=== PATIENT | female | born 1995 | race Caucasian/White ===

== ENCOUNTER 2018-01-24 08:00 | Outpatient (CLI) | payer BC, OTHER | END 2018-01-24 08:01 | disposition home or self-care (01) | LOC: LAB.R 08:00 | PROVIDERS: ATTEND Obstetrics & Gynecology | DX: Z11.3 Encounter for screening for infections with a predominantly sexual mode of transmission (principal); Z36.9 Encounter for antenatal screening, unspecified | CPT/HCPCS: 87491; 87591 ==

== ENCOUNTER 2018-02-11 13:43 | Outpatient (CLI) | payer OTHER ==
[2018-02-11 13:57] LABS: BILIRUBIN,URINE NEGATIVE (NEGATIVE); GLUCOSE, URINE (UA) NEGATIVE (NEGATIVE); KETONES,URINE (UA) 15 mg/dL (NEGATIVE); LEUKOCYTE ESTERASE, URINE NEGATIVE (NEGATIVE); NITRITE,URINE NEGATIVE (NEGATIVE); OCCULT BLOOD,URINE NEGATIVE (NEGATIVE); PROTEIN,URINE NEGATIVE (NEGATIVE); UROBILINOGEN,URINE 0.2 (NORMAL) E.U./dL (NORMAL)
[2018-02-11 14:04] LABS: BACTERIA,URINE None Seen /HPF (None Seen); CLARITY,URINE CLEAR (CLEAR); RBC,URINE None Seen /HPF (0-5); SQUAMOUS EPITHELIAL CELL,UR RARE Squamous (<= Few)
[2018-02-11 14:08] LABS: BASOPHILS % (AUTO) 0.1 %; EOSINOPHILS # (AUTO) 0.1 10^3/uL (0.0-0.7); HGB - HEMOGLOBIN 14.3 g/dL (12.0-16.0); LYMPHOCYTES # (AUTO) 1.7 10^3/uL (1.5-3.5); LYMPHOCYTES % (AUTO) 14.4 %; MEAN CORPUSCULAR HEMOGLOBIN 31.6 pg (27.0-31.0); MEAN CORPUSCULAR HGB CONC 34.9 g/dL (32.0-36.0); MEAN CORPUSCULAR VOLUME 90.5 fL (81.0-99.0); MEAN PLATELET VOLUME 8.6 fL (7.9-10.8); MONOCYTES # (AUTO) 0.4 10^3/uL (0.0-1.0); MONOCYTES % (AUTO) 3.6 %; NEUTROPHILS # (AUTO) 9.4 10^3/uL (1.5-6.6); NEUTROPHILS % (AUTO) 80.9 %; PLT - PLATELET COUNT 177 10^3/uL (130-450); RED BLOOD COUNT 4.53 10^6/uL (4.20-5.40); RED CELL DISTRIBUTION WIDTH 12.7 % (12.0-15.0); WHITE BLOOD COUNT 11.7 x10^3/uL (4.8-10.8)
[2018-02-12 08:51] LABS: HEPATITIS B SURFACE ANTIGEN NON-REACTIVE (NON-REACTIVE); HEPATITIS C ANTIBODY NON-REACTIVE (NON-REACTIVE)
[2018-02-12 14:28] LABS: HIV AG/AB 4TH GEN NON-REACTIVE (NON-REACTIVE)
== END 2018-02-11 13:44 | disposition home or self-care (01) ==
LOC: LAB 13:43
PROVIDERS: ATTEND Obstetrics & Gynecology
DX: Z36.9 Encounter for antenatal screening, unspecified (principal); Z11.3 Encounter for screening for infections with a predominantly sexual mode of transmission
CPT/HCPCS: 36415; 81001; 81599; 85025; 86592; 86762; 86803; 86850; 86900; 86901; 87340; 87389

== ENCOUNTER 2018-03-07 11:40 | Outpatient (CLI) | payer OTHER | END 2018-03-07 11:41 | disposition home or self-care (01) | LOC: LAB 11:40 | PROVIDERS: ATTEND Obstetrics & Gynecology | DX: Z36.9 Encounter for antenatal screening, unspecified (principal) | CPT/HCPCS: 36415; 81599 ==

== ENCOUNTER 2018-04-05 05:36 | Emergency (ER) | payer OTHER ==
[2018-04-05 05:46] VITALS: BP 125/68
--- NOTE | 2018-04-05 06:03 | ED Physician Documentation ---
PD HPI FEMALE - Stated complaint Stated Complaint: 19W ,BLEEDING - Chief complaint Chief Complaint: Abd Pain - History obtained from History obtained from: Patient - History of Present Illness Timing - onset: Today Associated symptoms: Vaginal bleeding Contributing factors: OB-NURSE OBGYN History: G (1), P (0) Similar symptoms before: Has not had sx before Recently seen: Not recently seen - Additional information Additional information: Patient is a 22 year old 19 weeks and 6 days by ultrasound who is presenting to the emergency department for vaginal spotting. Patient reports that she had intercourse last night and this morning she noticed some spotting. Patient denies any significant bleeding. Patient reports that her prior work up has been normal and that she has a follow up ultrasound in a few days. Review of Systems Ten Systems: 10 systems reviewed and negative : reports: Vaginal bleeding PD PAST MEDICAL HISTORY - Past Medical History Past Medical History: No Cardiovascular: None Respiratory: None Endocrine/Autoimmune: None GI: None NURSE OBGYN: None : None HEENT: None Psych: None Musculoskeletal: None Derm: None - Past Surgical History Past Surgical History: Yes Ortho: Other - Present Medications Home Medications: Ambulatory Orders Medication Instructions Recorded Confirmed Cyclobenzaprine [Flexeril] 10 mg PO TID PRN #20 tablet 05/28/15 Nitrofurantoin Monohyd/M-Cryst 100 mg PO BID 5 Days capsule 07/24/15 [Macrobid 100 mg Capsule] Phenazopyridine HCl [Pyridium] 200 mg PO TID PRN #6 tablet 07/24/15 - Allergies Allergies/Adverse Reactions: Allergies Allergy/AdvReac Type Severity Reaction Status Date / Time No Known Drug Allergies Allergy Verified 08/06/16 20:37 - Social History Does the pt smoke?: No Smoking Status: Never smoker Does the pt drink ETOH?: Yes Does the pt have substance abuse?: No - Immunizations Immunizations are current?: Yes - POLST Patient has POLST: No PD ED PE NORMAL - Vitals Vital signs reviewed: Yes - General General: Alert and oriented X 3, Well developed/nourished - HEENT HEENT: Atraumatic - Neck Neck: Supple, no meningeal sign - Cardiac Cardiac: RRR - Abdomen Abdomen: Soft - Female Female : Deferred - Derm Derm: Normal color, Warm and dry - Extremities Extremities: No deformity - Neuro Neuro: Alert and oriented X 3 Eye Opening: Spontaneous Results - Vitals Vitals: Vital Signs - 24 hr 04/05/18 05:40 Temperature 35.9 C L Heart Rate 77 Respiratory 16 Rate Blood Pressure 125/68 O2 Saturation 100 Oxygen O2 Source Room air Procedures - Bedside sono Bedside sono by EMP: pelvic ultrasound-viable iup with fhr of 154 PD MEDICAL DECISION MAKING - ED course Complexity details: reviewed old records, reviewed results, re-evaluated patient , considered differential, d/w patient, d/w family ED course: Patient was seen and examined at bedside. Patient was anxious but otherwise well appearing. Bedside. ultrasound was performed and showed a viable iup with a heart rate of 154. Patient's blood type was o positive. Patient was comforted by the findings. Patient required no further inpatient work up at this time and patient was stable for discharge with outpatient follow up. - Sepsis Event Vital Signs: Vital Signs - 24 hr 04/05/18 05:40 Temperature 35.9 C L Heart Rate 77 Respiratory 16 Rate Blood Pressure 125/68 O2 Saturation 100 Oxygen O2 Source Room air Departure - Departure Disposition: 01 Home, Self Care Clinical Impression: Threatened in second trimester Condition: Good Instructions: ED Miscarriage Poss Follow-Up: Leah Reyes ARNP [Primary Care Provider] - Comments: Your child was well appearing. It could just be secondary to the recent intercourse. you should refrain from any strenuous activity. You should go to your follow up appointment this week. You may return to the emergency department at any time for new, worsening or uncontrollable symptoms. Forms: Activity restrictions
== END 2018-04-05 06:13 | disposition home or self-care (01) ==
LOC: ED 05:36
DX: O20.0 Threatened abortion (principal); Z3A.18 18 weeks gestation of pregnancy
CPT/HCPCS: 99283

== ENCOUNTER 2018-04-07 12:51 | Outpatient (CLI) | payer OTHER | END 2018-04-07 12:52 | disposition home or self-care (01) | LOC: LAB 12:51 | PROVIDERS: ATTEND Obstetrics & Gynecology | DX: Z36.9 Encounter for antenatal screening, unspecified (principal) | CPT/HCPCS: 36415; 82950 ==

== ENCOUNTER 2018-04-08 07:49 | Outpatient (CLI) | payer OTHER ==
--- NOTE | 2018-04-08 10:42 | Ultrasound Report ---
Procedure Date: 04/08/2018 Accession Number: [id number] / [id number] Procedure: US - OB Detailed Eval CPT Code: FULL RESULT: EXAM: COMPLETE OBSTETRICAL ULTRASOUND EXAM DATE: 04/08/2018 09:22 AM. CLINICAL HISTORY: anatomic survey. COMPARISON: None. TECHNIQUE: Real-time sonographic evaluation of the fetus performed by the data analytics developer. Multiple security representative static images were saved for review. DATING: Established EGA: None. EGA 19 weeks 3 days with TAWANDA 08/30/2018 based on possible LMP of 11/23/2017. EGA 21 weeks 1 day with TAWANDA 08/18/2018 based on the current ultrasound. GENERAL EVALUATION Walker . Cardiac activity: 152 bpm. movement: Present. Presentation: Variable. Placenta: Anterior position. No evidence for previa. Umbilical cord: 3 vessel cord. Central placental cord origin. Amniotic fluid: Subjectively normal. MVP 4.4 cm. BIOMETRY Bi-Parietal Diameter (BPD): 4.9 cm, 20 weeks 5 days Head Circumference (HC): 18.3 cm, 20 weeks 5 days Abdominal Circumference (AC): 16.5 cm, 21 weeks 4 days Femur Length (FL): 3.6 cm, 21 weeks 3 days Estimated Weight: 416 gm ANATOMY The intracranial structures, profile, face/nose/lips, spine, 4 chamber heart and outflow tracts, stomach, abdominal wall and cord insertion, diaphragm, kidneys, bladder, and extremities were seen and demonstrate no abnormality. MATERNAL STRUCTURES Uterus: Unremarkable. Cervix: Long and closed. Transabdominal length 4.5 cm. Right ovary/adnexa: Unremarkable. Left ovary/adnexa: Unremarkable. Free fluid: None. IMPRESSION: 1. Walker intrauterine with gestational age 21 weeks 1 day based on composite ultrasound measurements today.. 2. TAWANDA 08/18/2018 3. Normal anatomic survey. No anatomic abnormalities are detected at this time. RADIA
== END 2018-04-08 07:50 | disposition home or self-care (01) ==
LOC: DI 07:49
PROVIDERS: ATTEND Obstetrics & Gynecology
DX: Z36.3 Encounter for antenatal screening for malformations (principal)
CPT/HCPCS: 76811

== ENCOUNTER 2018-04-29 08:00 | Outpatient (CLI) | payer OTHER | END 2018-04-29 08:01 | disposition home or self-care (01) | LOC: LAB 08:00 | PROVIDERS: ATTEND Obstetrics & Gynecology | DX: R73.02 Impaired glucose tolerance (oral) (principal) | CPT/HCPCS: 36415; 82951; 82952 ==

== ENCOUNTER 2018-07-21 08:00 | Outpatient (CLI) | payer OTHER | END 2018-07-21 23:59 | LOC: LAB.R 08:00 | PROVIDERS: ATTEND Obstetrics & Gynecology | DX: Z36.85 Encounter for antenatal screening for Streptococcus B (principal) | CPT/HCPCS: 87081 ==

== ENCOUNTER 2018-08-01 10:13 | Outpatient (CLI) | payer OTHER ==
[2018-08-01 10:43] LABS: BILIRUBIN,URINE NEGATIVE (NEGATIVE); GLUCOSE, URINE (UA) NEGATIVE (NEGATIVE); KETONES,URINE (UA) NEGATIVE (NEGATIVE); LEUKOCYTE ESTERASE, URINE NEGATIVE (NEGATIVE); NITRITE,URINE NEGATIVE (NEGATIVE); OCCULT BLOOD,URINE NEGATIVE (NEGATIVE); PROTEIN,URINE NEGATIVE (NEGATIVE); UROBILINOGEN,URINE 0.2 (NORMAL) E.U./dL (NORMAL)
[2018-08-01 10:46] LABS: CLARITY,URINE CLEAR (CLEAR)
[2018-08-01 10:51] LABS: CREATININE 0.5 mg/dL (0.4-1.0); CREATININE,URINE 76.7 mg/dL; PROTEIN/CREATININE RATIO,URINE 0.1 (<=0.2); URIC ACID 5.2 mg/dL (2.6-7.2)
== END 2018-08-01 10:14 | disposition home or self-care (01) ==
LOC: LAB 10:13
PROVIDERS: ATTEND Nurse Practitioner Obstetrics & Gynecology
DX: R03.0 Elevated blood-pressure reading, without diagnosis of hypertension (principal)
CPT/HCPCS: 36415; 81001; 81003; 82565; 82570; 83615; 84156; 84450; 84550; 87086

== ENCOUNTER 2018-08-03 21:36 | Outpatient (CLI) | payer OTHER ==
[2018-08-03 23:31] VITALS: BP 120/83
== END 2018-08-03 22:40 | disposition home or self-care (01) ==
LOC: FBP 21:36 → WFO 21:36
PROVIDERS: ATTEND Obstetrics & Gynecology
DX: O99.89 Other specified diseases and conditions complicating pregnancy, childbirth and the puerperium (principal); R03.0 Elevated blood-pressure reading, without diagnosis of hypertension; Z3A.37 37 weeks gestation of pregnancy
CPT/HCPCS: 99213

== ENCOUNTER 2018-08-04 14:17 | Outpatient (CLI) | payer OTHER ==
[2018-08-04 14:59] VITALS: BP 134/80
[2018-08-04 16:10] LABS: CREATININE,URINE 72.1 mg/dL; PROTEIN/CREATININE RATIO,URINE 0.1 (<=0.2)
== END 2018-08-04 15:22 | disposition home or self-care (01) ==
LOC: WFO 14:17 → FBP 14:20 → WFO 15:22
PROVIDERS: ATTEND Obstetrics & Gynecology
DX: O13.3 Gestational [pregnancy-induced] hypertension without significant proteinuria, third trimester (principal); Z3A.38 38 weeks gestation of pregnancy
CPT/HCPCS: 59025; 82570; 84156

== ENCOUNTER 2018-08-06 14:56 | Outpatient (CLI) | payer OTHER ==
[2018-08-06 15:58] VITALS: BP 129/77
== END 2018-08-06 15:45 | disposition home or self-care (01) ==
LOC: WFO 14:56 → FBP 14:59 → WFO 15:45
PROVIDERS: ATTEND Obstetrics & Gynecology
DX: O13.3 Gestational [pregnancy-induced] hypertension without significant proteinuria, third trimester (principal); Z3A.38 38 weeks gestation of pregnancy
CPT/HCPCS: 59025

== ENCOUNTER 2018-08-08 15:23 | Inpatient (IN) | payer OTHER ==
[2018-08-08] MEDS ORDERED: SODIUM CHLORIDE FLUSH 0.9% 10 ML SYRINGE IVP SCH (17:00)
[2018-08-08] MEDS ORDERED: ONDANSETRON 4 MG/2 ML VIAL IVP PRN (18:00)
[2018-08-08] MEDS ORDERED: SODIUM CHLORIDE FLUSH 0.9% 10 ML SYRINGE IVP PRN (18:00)
[2018-08-08] MEDS ORDERED: DINOPROSTONE 10 MG SUPP VG ONE (18:30)
[2018-08-08 19:31] LABS: BASOPHILS % (AUTO) 0.2 %; EOSINOPHILS # (AUTO) 0.1 10^3/uL (0.0-0.7); EOSINOPHILS % (AUTO) 1.2 %; HGB - HEMOGLOBIN 13.4 g/dL (12.0-16.0); LYMPHOCYTES # (AUTO) 1.5 10^3/uL (1.5-3.5); LYMPHOCYTES % (AUTO) 14.8 %; MEAN CORPUSCULAR HEMOGLOBIN 31.1 pg (27.0-31.0); MEAN CORPUSCULAR HGB CONC 34.4 g/dL (32.0-36.0); MEAN CORPUSCULAR VOLUME 90.7 fL (81.0-99.0); MEAN PLATELET VOLUME 9.9 fL (7.9-10.8); MONOCYTES # (AUTO) 0.6 10^3/uL (0.0-1.0); MONOCYTES % (AUTO) 5.6 %; NEUTROPHILS # (AUTO) 7.8 10^3/uL (1.5-6.6); NEUTROPHILS % (AUTO) 78.2 %; PLT - PLATELET COUNT 151 10^3/uL (130-450); RED BLOOD COUNT 4.31 10^6/uL (4.20-5.40); RED CELL DISTRIBUTION WIDTH 13.1 % (12.0-15.0)
--- NOTE | 2018-08-08 20:01 | PROVIDER PROGRESS NOTE ---
Subjective - Prog Note Date Prog Note Date: 08/04/18 Prog Note Time: 16:00 - Subjective Subjective: Libby Smith is a 23-year-old primigravida at 38 weeks 1 day who is here for routine NST due to gestational hypertension. Blood pressure measur ements 138/93 and 134's/80. She has no headaches visual changes or epigastric tenderness with only mild edema. NST is reactive with a baseline of 140 moderate variability to increase variability with multiple accelerations meeting criteria and only rare contraction. Patient was given warning signs and follow- up instructions and sent home. She will be evaluated in the clinic next week. Objective - Lab Results Fish Bones: 08/08/18 19:05 Other Labs: Lab Results x24hrs 08/08/18 Range/Units 19:05 WBC 10.0 (4.8-10.8) x10^3/uL RBC 4.31 (4.20-5.40) 10^6/uL Hgb 13.4 (12.0-16.0) g/dL Hct 39.1 (37.0-47.0) % MCV 90.7 (81.0-99.0) fL MCH 31.1 H (27.0-31.0) pg MCHC 34.4 (32.0-36.0) g/dL RDW 13.1 (12.0-15.0) % Plt Count 151 (130-450) 10^3/uL MPV 9.9 (7.9-10.8) fL Neut # (Auto) 7.8 H (1.5-6.6) 10^3/uL Lymph # (Auto) 1.5 (1.5-3.5) 10^3/uL [place] # (Auto) 0.6 (0.0-1.0) 10^3/uL Eos # (Auto) 0.1 (0.0-0.7) 10^3/uL Baso # (Auto) 0.0 (0.0-0.1) 10^3/uL Absolute Nucleated RBC 0.01 x10^3/uL Nucleated RBC % 0.1 /100WBC
[2018-08-08 21:04] LABS: BILIRUBIN,TOTAL 0.5 mg/dL (0.2-1.0); CALCIUM 8.9 mg/dL (8.5-10.3); CREATININE 0.6 mg/dL (0.4-1.0); TOTAL PROTEIN 6.1 g/dL (6.7-8.2)
[2018-08-09] MEDS: LABETALOL 100 MG TABLET PO SCH ×2 (00:53→10:49)
[2018-08-09 01:10] LABS: BILIRUBIN,URINE NEGATIVE (NEGATIVE); GLUCOSE, URINE (UA) NEGATIVE (NEGATIVE); KETONES,URINE (UA) NEGATIVE (NEGATIVE); LEUKOCYTE ESTERASE, URINE NEGATIVE (NEGATIVE); NITRITE,URINE NEGATIVE (NEGATIVE); OCCULT BLOOD,URINE NEGATIVE (NEGATIVE); PROTEIN,URINE NEGATIVE (NEGATIVE); UROBILINOGEN,URINE 0.2 (NORMAL) E.U./dL (NORMAL)
[2018-08-09 01:19] LABS: CREATININE,URINE 132.2 mg/dL; PROTEIN/CREATININE RATIO,URINE 0.1 (<=0.2)
[2018-08-09 01:45] LABS: BACTERIA,URINE None Seen /HPF (None Seen); CLARITY,URINE CLEAR (CLEAR); RBC,URINE None Seen /HPF (0-5); SQUAMOUS EPITHELIAL CELL,UR NONE SEEN (<= Few)
--- NOTE | 2018-08-09 02:31 | HISTORY & PHYSICAL EXAMINATION ---
DATE OF SERVICE: 08/08/2018 Physician: Davy Mcclure MD DIAGNOSES 1. Gestational hypertension, necessitating labetalol. 2. A 38-week gestation. 3. Large for gestational age fetus. 4. Medically indicated induction with ripening, then Pitocin. HISTORY OF PRESENT ILLNESS: Patient is a 23-year-old primigravida at 38 w gestation who [facility]. On the last 2 visits, she has been noted to have increased blood pressure; August 05, 134/98, and August 04, 142/93. She was begun on labetalol. She had no pre- cardiovascular disease. She currently has no headaches, visual changes, or right upper quadrant pain but does have mild finger and ankle edema. Her last NST on August 04 was reactive. BASELINE LABORATORY STUDIES: Blood type O positive, antibody screen negative. Hepatitis B surface antigen negative. Hepatitis C negative. HIV negative. RPR negative. Rubella immune. One-hour Glucola 146. Three-hour glucose tolerance test normal (94, 156, 94, 51). Normal anatomy scan. PAST MEDICAL HISTORY 1. No chronic disease history. 2. Fracture, left elbow. ALLERGIES: NO KNOWN DRUG ALLERGIES. MEDICATIONS 1. vitamins and iron. 2. Labetalol 100 mg b.i.d. SOCIAL HISTORY: , employed. No drug, tobacco, or alcohol use. REVIEW OF SYSTEMS CONSTITUTIONAL: Negative. HEENT: Negative. LUNGS: Negative. CARDIAC: Negative. GASTROINTESTINAL: Negative. GENITOURINARY: Negative. GC/chlamydia negative. No STI history. MUSCULOSKELETAL: Elbow surgical repair as noted before. Normal range of motion. HEMATOLOGIC/LYMPHATIC: No abnormal lymph nodes. No coagulation defect. NEUROLOGIC: Negative. SKIN: Negative. PSYCHIATRIC: Negative. PHYSICAL EXAMINATION GENERAL: Patient alert, oriented, in no distress. HEENT: Supple neck. No thyromegaly. Moist mucous membranes. LUNGS: Clear to auscultation. CARDIAC: Regular. Grade 2/6 systolic ejection murmur of . No diastolic component, rub, or gallop. ABDOMEN: No organomegaly. No right upper quadrant tenderness. GENITOURINARY: Uterus large for gestational age, estimated 8.5- to 9-pound fetus. Bony pelvis should be adequate. Obstetrical conjugate 12.5+, bituberous diameter 10.5+, angles slightly narrowed. External monitor reactive, rare contractions, baseline 140s. Cervical exam: 1.5 cm, 50% effaced, midposition. Bag of santa intact. Medium consistency. Modified Morse score is 5. Therefore, cervical ripening is advisable. EXTREMITIES: Normal range of motion. Mild pedal edema. NEUROLOGIC: Grossly intact. PSYCHOLOGIC: Alert, oriented, appropriate. ASSESSMENT: Patient has gestational hypertension as proved by elevated blood pressure on 2 occasions. Currently she is on labetalol, and blood pressure control. No signs or symptoms of preeclampsia. However, await admission/-induced hypertension labs. Given current ACOG ([employer]) recommendations, gestational hypertension over 37 weeks, recommendation is for delivery/induction. Patient seems to be an appropriate candidate. PLAN 1. Cervidil ripening followed by Pitocin induction. 2. Had a detailed discussion with patient about induction, including the indication, risks, and potential benefits. Also discussed the alternative of waiting and the possibility of worsening preeclampsia and poor outcome. After discussion, patient signed informed consent paperwork for induction. Orders written. TD: 08/08/2018 20:42 JUSTIN
[2018-08-09] MEDS ORDERED: SODIUM CHLORIDE FLUSH 0.9% 10 ML SYRINGE ONE (09:05)
[2018-08-09] MEDS: LACTATED RINGERS 1,000 ML IV SCH ×3 (09:06→20:22)
[2018-08-09] MEDS: OXYTOCIN/SODIUM CHLORIDE 500 ML IV SCH ×3 (09:09→23:45)
--- NOTE | 2018-08-09 09:49 | PROVIDER PROGRESS NOTE ---
Labor Progress Note - Uterine Monitoring Uterine Monitoring Mode: positive: External toco Contraction Frequency (min/apart): Irregular Contraction Intensity: positive: Irritability Uterine Resting Tone: positive: Soft - Monitoring Monitor Mode: positive: External ultrasound Heart Rate Baseline: 140 Heart Rate Variability: positive: Moderate (6-25 bmp) Accelerations: positive: Present, 15x15 Decelerations: positive: None Strip Review: positive: Category I - Vaginal Exam Dilation (in cm): 2-3 cm Effacement (%): 70% Station: 0 Cervical Position: Posterior - Labor Progress Note Labor Progress Note/Additional Text: Begin Pitocin
--- NOTE | 2018-08-09 15:19 | PROVIDER PROGRESS NOTE ---
Labor Progress Note - Uterine Monitoring Uterine Monitoring Mode: positive: External toco Contraction Frequency (min/apart): q2 - 3 min Contraction Intensity: positive: Mild to moderate Uterine Resting Tone: positive: Soft - Monitoring Monitor Mode: positive: External ultrasound Heart Rate Baseline: 145 Heart Rate Variability: positive: Moderate (6-25 bmp) Accelerations: positive: Present, 15x15 Decelerations: positive: None Strip Review: positive: Category I - Vaginal Exam Dilation (in cm): 2.5 Effacement (%): 70% Station: 0 Cervical Position: Midposition - Labor Progress Note Labor Progress Note/Additional Text: Patient is moving through the latent phase of labor with the aid of augmentation. heart tracing is non-concerning. Patient requests epidural in place prior to rupturing membranes. Patient candidate for rupture of membranes.
[2018-08-09] MEDS ORDERED: fent/BUPIV 2 MCG/0.125% 250 ML EP ONE (16:00)
[2018-08-09] MEDS ORDERED: ONDANSETRON 4 MG/2 ML VIAL IVP PRN (16:44)
[2018-08-09] MEDS ORDERED: METOCLOPRAMIDE 10 MG/2 ML VIAL IVP PRN (16:44)
[2018-08-09] MEDS ORDERED: NALBUPHINE 10 MG/ML AMP IVP PRN (16:44)
[2018-08-09] MEDS ORDERED: ePHEDrine 50 MG/ML VIAL IVP PRN (16:44)
[2018-08-09] MEDS ORDERED: LACTATED RINGERS 500 ML IV ONE (16:44)
[2018-08-09] MEDS ORDERED: NALOXONE 0.4 MG/ML VIAL IVP PRN (16:44)
[2018-08-09] MEDS ORDERED: diphenhydrAMINE INJ 50 MG/ML VIAL IVP PRN (16:44)
--- NOTE | 2018-08-09 16:52 | ANESTHESIA ---
Pre-Anesthesia VS, & Labs - Diagnosis Active labor, induced hypertension - Procedure Continuous labor epidural Vital Signs: Temp Pulse Resp BP Pulse Ox 36.7 C 61 18 140/80 H 100 08/09/18 11:37 08/09/18 11:37 08/09/18 11:37 08/09/18 11:37 08/09/18 11:37 Height 6 ft Weight (kg) 104.326 kg Body Mass Index 24.4 - NPO Other (Last solid food one hour ago) - Is Patient ?: Yes - Lab Results Current Lab Results: Laboratory Tests 08/08/18 20:33: Sodium 135, Potassium 3.3 L, Chloride 104, Carbon Dioxide 22, Anion Gap 9.0, BUN 10, Creatinine 0.6, Estimated GFR (MDRD) 125, Glucose 110 H, Calcium 8.9, Total Bilirubin 0.5, AST 27, ALT 31, Alkaline Phosphatase 148 H, Total Protein 6.1 L, Albumin 3.0 L, Globulin 3.1, Albumin/Globulin Ratio 1.0 08/08/18 20:33: Lactate Dehydrogenase 113 08/08/18 19:05: Blood Type O POSITIVE, Antibody Screen NEGATIVE 08/08/18 19:05: WBC 10.0, RBC 4.31, Hgb 13.4, Hct 39.1, MCV 90.7, MCH 31.1 H, MCHC 34.4, RDW 13.1, Plt Count 151, MPV 9.9, Neut # (Auto) 7.8 H, Lymph # (Auto) 1.5, [place] # (Auto) 0.6, Eos # (Auto) 0.1, Baso # (Auto) 0.0, Absolute Nucleated RBC 0.01, Nucleated RBC % 0.1 Fish Bones: 08/08/18 19:05 08/08/18 20:33 Home Medications and Allergies Active Medications Diphenhydramine HCl (Benadryl Inj) 12.5 - 25 mg IVP Q6HR PRN PRN Reason: ITCHING Ephedrine Sulfate () 5 mg IVP Q5M PRN PRN Reason: For SBP<100;give until SBP>100 Lactated Ringer's (Lr) 1,000 mls @ 100 mls/hr IV .Q10H KRIS Last Admin: 08/09/18 15:31 Dose: 999 mls/hr Oxytocin/Sodium Chloride (Pitocin/Sodium Chloride) 500 mls @ 1 mls/hr IV TITR KRIS; Protocol Last Admin: 08/09/18 09:09 Dose: 1 milliunit/min, 1 mls/hr Lactated Ringer's (Lr) 500 mls @ 999 mls/hr IV ONCE ONE Stop: 08/09/18 17:14 Labetalol HCl (Trandate) 100 mg PO BID REPLACED BY [facility] Last Admin: 08/09/18 10:49 Dose: 100 mg Metoclopramide HCl (Reglan Inj) 10 mg IVP Q6HR PRN PRN Reason: Nausea / Vomiting Nalbuphine HCl (Nubain) 2.5 - 5 mg IVP Q4H PRN PRN Reason: ITCHING Naloxone HCl (Narcan) 0.1 mg IVP Q2M PRN PRN Reason: RR<8 Ondansetron HCl (Zofran Inj) 4 mg IVP Q4HR PRN PRN Reason: Nausea / Vomiting Ondansetron HCl (Zofran Inj) 4 mg IVP Q6HR PRN PRN Reason: Nausea / Vomiting Sodium Chloride (Normal Saline Flush 0.9%) 10 ml IVP 0100,0900,1700 KRIS Sodium Chloride (Normal Saline Flush 0.9%) 10 ml IVP PRN PRN PRN Reason: NEEDED PER PROVIDER ORDERS Last Admin: 08/09/18 09:10 Dose: 10 ml Allergies/Adverse Reactions: Allergies Allergy/AdvReac Type Severity Reaction Status Date / Time No Known Drug Allergies Allergy Verified 08/06/16 20:37 Anes History & Medical History - Anesthetic History Anesthesia Complications: reports: No previous complications Family history of Anesthesia Complications: Denies Family history of Malignant Hyperthermia: Denies - Medical History Cardiovascular: reports: None, Hypertension (With , on 100 mg labetalol bid) Pulmonary: reports: None Gastrointestinal: reports: None Urinary: reports: None Musculoskeletal: reports: None, Scoliosis Endocrine/Autoimmune: reports: None Blood Disorders: reports: None Skin: reports: None Smoking Status: Never smoker - Surgical History Orthopedic: Other Exam General: Alert, Oriented x3, Cooperative Dental: WNL Mouth Opening: Greater than 4 Fingerbreadths Neck Mobility: Normal Mallampati classification: II Thyromental Distance: greater than 6 cm Neurological: Normal speech Mental/Cognitive Status: Alert/Oriented X3 Cognitive Status: Within normal limits Plan Anesthesia Type: Epidural Consent for Procedure(s) Verified and Reviewed: Yes Code Status: Attempt Resuscitation ASA classification: 2-Mild systemic disease Is this case an emergency?: Yes
--- NOTE | 2018-08-09 18:07 | PROVIDER PROGRESS NOTE ---
Labor Progress Note - Uterine Monitoring Uterine Monitoring Mode: positive: External toco Contraction Frequency (min/apart): Every 2.5-3 minutes Contraction Intensity: positive: Moderate Uterine Resting Tone: positive: Soft - Monitoring Monitor Mode: positive: External ultrasound Heart Rate Baseline: [id number] Heart Rate Variability: positive: Moderate (6-25 bmp) Accelerations: positive: Present, 15x15 Decelerations: positive: Variable (Mild at most) Strip Review: positive: Category I - Vaginal Exam Dilation (in cm): 3 Effacement (%): 70% Station: 0 Cervical Position: Posterior - Labor Progress Note Labor Progress Note/Additional Text: Patient currently is comfortable with epidural in place. Artificial rupture of membranes yielded a small amount of blood-tinged fluid. Patient's blood pressures increased over the baseline admission values, it is now mid 140s-150s over mid 90s. No right upper quadrant pain some increase in ring finger and facial edema. No reported headache or visual changes. Will maintain close watch on blood pressure
[2018-08-09] MEDS ORDERED: LACTATED RINGERS 1,000 ML IV ONE (19:41)
--- NOTE | 2018-08-09 22:09 | PROVIDER PROGRESS NOTE ---
Labor Progress Note - Uterine Monitoring Uterine Monitoring Mode: positive: External toco Contraction Frequency (min/apart): q 3min : 135-140 Contraction Intensity: positive: Moderate Uterine Resting Tone: positive: Soft - Monitoring Monitor Mode: positive: External ultrasound Heart Rate Baseline: 135-140 Heart Rate Variability: positive: Moderate (6-25 bmp) Accelerations: positive: Present, 15x15 Decelerations: positive: Early Strip Review: positive: Category I - Vaginal Exam Dilation (in cm): 10 Effacement (%): 100% Station: 2 Cervical Position: Anterior - Labor Progress Note Labor Progress Note/Additional Text: Patient is entered the second stage of labor and the EF M tracing is stable without concerns. Good consent minimizes chances of dystocia.
[2018-08-09] MEDS ORDERED: OXYTOCIN/SODIUM CHLORIDE 500 ML IV SCH (22:58)
[2018-08-10] MEDS: OXYTOCIN/SODIUM CHLORIDE 500 ML IV SCH (00:05)
[2018-08-10] MEDS ORDERED: ACETAMINOPHEN 325 MG TABLET PO PRN (02:49)
[2018-08-10] MEDS ORDERED: MAGNESIUM HYDROXIDE 2,400 MG/30 ML UDC PO PRN (02:49)
[2018-08-10] MEDS ORDERED: HYDROCORTISONE 1% CREAM 28 GM TUBE PR PRN (02:49)
[2018-08-10] MEDS ORDERED: WITCH HAZEL/GLYCERIN 1 EACH MED..PAD TOP PRN (02:49)
[2018-08-10] MEDS ORDERED: LACTATED RINGERS 1,000 ML IV SCH (03:00)
[2018-08-10] MEDS ORDERED: MINERAL OIL LIGHT 10 ML MC ONE (03:22)
[2018-08-10] MEDS ORDERED: LIDOCAINE 1% 50 ML MDV ONE (03:22)
[2018-08-10] MEDS: IBUPROFEN 600 MG TABLET PO SCH ×4 (03:40→21:00)
[2018-08-10] MEDS: LABETALOL 100 MG TABLET PO SCH ×2 (08:03→21:00)
[2018-08-10] MEDS: DOCUSATE SODIUM 100 MG CAPSULE PO SCH ×2 (09:44→21:00)
--- NOTE | 2018-08-10 10:18 | DELIVERY NOTE ---
Delivery Note - Labor Labor: positive: Augmented by oxytocin - Delivery Method Delivery Method: positive: Spontaneous vaginal delivery - Cervical Ripening Method Cervical Ripening Method: positive: Oxytocin, Prostaglandin E2 - Presentation Presentation: positive: Vertex, YANELI - left occiput anterior - Nuchal Cord Nuchal Cord: positive: None - Anesthetic Anesthetic Type: - Amniotic Fluid Description Amniotic Fluid Description: positive: Clear - Episiotomy Type Episiotomy Type: positive: None - Laceration Laceration: positive: None - Delivery Outcome Delivery Outcome: positive: Livebirth (Living female weighing 8 pounds 13 ounces and scoring Apgars of 4/9. Venous cord pH 7.359 base excess -3.5; arterial cord pH unavailable) - [place]: positive: Placed in direct skin contact with mother, Suctioned, Warmed, Other (Afterbirth respiratory difficulty was experienced with the and Dr. Mustafa was called in for an evaluation. Reference is notes. Currently is doing well) [place] sex: positive: Female - Cord Cord: positive: 3 vessels - Placenta Placenta: positive: Intact (Grade 2 placenta) - Estimated Blood Loss Estimated Blood Loss (in cc): 450 - Post Delivery Events Post Delivery Events: positive: No post delivery events - Delivery Comments (Free Text/Narrative) Delivery Comments (Free Text/Narrative): Patient began to push with good effort at 2235 hrs. She smoothly brought the head to the perineum. Atraumatic delivery was done with the aid of stretch and push method. Shoulders were a tighter fit but not dystocia. Living female infant was delivered without obvious trauma or congenital anomalies. Mother baby and father all bonded well.
--- NOTE | 2018-08-10 10:24 | PROVIDER PROGRESS NOTE ---
Subjective - General Admit Date: 08/09/18 Procedure Date: 08/09/18 Post Op Days: 1 Procedure Performed: Vaginal delivery with augmentation - Review of Systems Wound/Incisions: positive: Healing well General: positive: No symptoms HEENT: positive: No symptoms Pulmonary: positive: No symptoms Cardiovascular: positive: No symptoms Gastrointestinal: positive: No symptoms Genitourinary: positive: No symptoms Musculoskeletal: positive: No symptoms Skin: positive: No symptoms Psychiatric: positive: No symptoms Objective - Patient Data Vital Signs: Vital Signs x48h Temp Pulse Resp BP Pulse Ox 08/10/18 08:00 98.2 F 81 16 130/69 08/10/18 06:29 98.1 F 74 14 138/78 H 100 Weight: Weight 08/08/18 08/09/18 08/10/18 23:59 23:59 23:59 Weight (kg) 104.326 kg Intake & Output: Intake and Output Totals x24h 08/08/18 08/09/18 08/10/18 23:59 23:59 23:59 Intake Total 2774.367 867.3 Output Total 1900 Balance 874.367 867.3 - Lab Results Lab Results: 08/08/18 19:05 08/08/18 20:33 - Current Medications Current Medications: Current Medications Generic Name Dose Route Start Last Admin Trade Name Freq PRN Reason Stop Dose Admin Docusate Sodium 100 mg 08/10/18 09:00 08/10/18 09:44 Colace 100mg Capsule PO Not Given BID KRIS Oxytocin/Sodium Chloride 500 mls @ 0 mls/hr 08/09/18 23:00 08/10/18 00:05 Pitocin/Sodium Chloride IV 100 mls/hr DAILY KRIS Administration Per Protocol Ibuprofen 600 mg 08/10/18 03:00 08/10/18 09:44 Motrin PO Not Given Q6H KRIS Sodium Chloride 10 ml 08/08/18 18:00 08/09/18 09:10 Normal Saline Flush 0.9% IVP 10 ml PRN PRN Administration NEEDED PER PROVIDER ORDERS Physical Exam - Physical Exam General: positive: No acute distress, Alert HEENT: positive: Moist mucous membranes Neck: positive: Supple w/out meningeal sx Abdomen: positive: Normal Bowel sounds Female : positive: Enlarged uterus (17-week size uterus firm nontender), Other (Mild non-foul lochia rubra) Extremities: positive: No pedal edema Neurologic: positive: Alert and Oriented X 3 Assess/Plan - Additional Planning My Orders: My Active Orders 08/09/18 22:56 IO [RC] Q4H Checks - OB [RC] Q15MX8,Q1HRX2,Q4HRX6,QSHIFT Vital Signs - OB [RC] Q15MX8,Q1HRX2,Q4HRX6,QSHIFT Condition of Patient [OTHERS] Routine 08/09/18 23:00 Oxytocin/Sodium Chloride [Pitocin/Sodium Chloride] 500 ml IV DAILY 08/10/18 02:49 Activity - [RC] QSHIFT Ice Pack [RC] PRN Notify Provider - VS Parameter [RC] .notify OB K-PAD [RC] PRN Acetaminophen [Tylenol] 325 mg PO Q4HR PRN Hydrocortisone 1% Cream [Hydrocortisone] 1 applic MN QID PRN Magnesium Hydroxide [Milk of Magnesia] 2,400 mg PO Q8HR PRN Witch Maria T/Glycerin [Tucks] 1 each TOP QID PRN Code Status [OTHERS] Routine 08/10/18 03:00 Ibuprofen [Motrin] 600 mg PO Q6H 08/10/18 09:00 Docusate Sodium 100Mg Capsule [Colace 100Mg Capsule] 100 mg PO BID 08/10/18 Breakfast Regular Diet [DIET] 08/11/18 02:49 IV Discontinuation [RC] ONCE Assessment/Plan - Assessment/Plan Assessment: Patient recovering well from a vaginal delivery. No evidence of sequela secondary to gestational hypertension. Breast-feeding proceeding well with coaching. Plan: Continue supportive care.
[2018-08-10 12:00] LABS: BASOPHILS % (AUTO) 0.2 %; EOSINOPHILS # (AUTO) 0.1 10^3/uL (0.0-0.7); EOSINOPHILS % (AUTO) 0.7 %; HGB - HEMOGLOBIN 12.3 g/dL (12.0-16.0); LYMPHOCYTES # (AUTO) 1.4 10^3/uL (1.5-3.5); MEAN CORPUSCULAR HEMOGLOBIN 31.2 pg (27.0-31.0); MEAN CORPUSCULAR HGB CONC 35.4 g/dL (32.0-36.0); MEAN CORPUSCULAR VOLUME 88.4 fL (81.0-99.0); MEAN PLATELET VOLUME 9.4 fL (7.9-10.8); MONOCYTES # (AUTO) 0.8 10^3/uL (0.0-1.0); MONOCYTES % (AUTO) 6.7 %; NEUTROPHILS # (AUTO) 9.7 10^3/uL (1.5-6.6); NEUTROPHILS % (AUTO) 80.4 %; PLT - PLATELET COUNT 131 10^3/uL (130-450); RED BLOOD COUNT 3.95 10^6/uL (4.20-5.40); RED CELL DISTRIBUTION WIDTH 12.7 % (12.0-15.0); WHITE BLOOD COUNT 12.1 x10^3/uL (4.8-10.8)
[2018-08-10] MEDS ORDERED: LABETALOL 100 MG TABLET PO SCH (12:00)
[2018-08-10] MEDS ORDERED: LACTATED RINGERS 1,000 ML IV ONE (23:19)
[2018-08-10] MEDS ORDERED: SODIUM CHLORIDE FLUSH 0.9% 10 ML SYRINGE ONE (23:19)
[2018-08-11] MEDS: IBUPROFEN 600 MG TABLET PO SCH ×2 (05:11→08:58)
--- NOTE | 2018-08-11 06:53 | Discharge Plan ---
Discharge Plan Disposition: 01 Home, Self Care Condition: Good Diet: Regular Activity Restrictions: Activity as Tolerated Shower Restrictions: No Driving Restrictions: No Weight Bearing: Full Weight No Smoking: If you smoke, Please STOP! Call for help. Follow-up with: Davy Mcclure MD [Provider Admit Priv/Credential] -
--- NOTE | 2018-08-11 07:32 | DISCHARGE SUMMARY ---
Physician: Davy Mcclure MD DATE OF ADMISSION: 08/09/2018 DATE OF DISCHARGE: 08/11/2018 DIAGNOSES 1. Gestational hypertension, necessitating labetalol. 2. 38-week gestation. 3. Large for gestational age fetus. 4. Medically indicated induction with ripening then Pitocin. PROCEDURES: Vaginal delivery over an intact perineum of a living female (Kami). HISTORY: The patient is a 23-year-old primigravida at 38 weeks' gestation, who [facility]. On two occasions, her blood pressure has been over 140/90, and she was begun on labetalol 100 b.i.d. She are no symptoms of preeclampsia. LABORATORY DATA: Basic labs, blood type O positive, antibody screen negative, hepatitis surface anti gen negative, hepatitis C negative. HIV negative, RPR negative, rubella immune. Glucola 146 with no rmal 1-hour glucose challenge test. GBS negative. HOSPITAL COURSE: The patient was admitted, and cervix was found to be 1.5 cm, 50% effaced, midpositi on, and -2 station. Morse score was 5, and therefore, ripening was begun with Cervidil. On hospital day #2, Cervidil was discontinued and a Pitocin induction begun after placement of an epi dural. At that time, cervical dilation was 3 cm, 70% effaced, and still posterior, with a category 1 strip. Baseline hemoglobin was 13.4 with platelet count of 151. Creatinine was 0.6, LDH 113, glucose 110 wi th a creatinine/protein ratio of 0.1 (normal). The patient did have some edema. Her blood pressure was somewhat labile, at times over 130/90. Labetalol 100 b.i.d. was continued. Her membranes were artificially ruptured at 2 o'clock. The patient steadily progressed during the da y to become complete around 2200 hours. She pushed with good effort and delivered a living female in vee weighing 8 pounds 13 ounces, and scoring Apgars of 4 and 5. Venous cord pH was 7.359 with a bas e excess of -0.35. Arterial cord pH clotted, and was unavailable. Total blood loss was 450. After delivery a stridor was found and Dr. Avalos called in for evaluation, reference his no javi. is doing well, but will be referred to a pediatric ENT. Reference delivery note. Postoperatively, the patient did well with a hemoglobin of 13.3. Pressures remained stable. By 07/20, patient felt well enough for discharge. Warning sign and callback instructions were reviewed . DISCHARGE MEDICATIONS 1. Motrin 600 every 6 hours p.r.n. 2. Labetalol 100 mg b.i.d. for at least 30 days. FOLLOWUP: Followup will be in 2 weeks, at which time, and blood pressure check will be accomplished. TD: 08/11/2018 07:00
[2018-08-11 08:19] VITALS: BP 134/81
[2018-08-11] MEDS: DOCUSATE SODIUM 100 MG CAPSULE PO SCH (08:58)
[2018-08-11] MEDS: LABETALOL 100 MG TABLET PO SCH (08:58)
--- NOTE | 2018-08-11 10:20 | Labor Flowsheet ---
Labor Flowsheet Datetime Report Generated by CPN: 08/11/2018 10:20 Datetime: 08/11/2018 07:47 VITAL SIGNS NBP Sys/Adrienne/Mean (mmHg): 134 : 81 : 93 Pulse: 87 Datetime: 08/10/2018 22:30 ANESTHESIA Anesthesia Plans: Epidural turned off per MD request. Datetime: 08/10/2018 11:53 Temperature (F): 98.2 Temperature (C): 36.8 Datetime: 08/10/2018 00:49 SpO2 (%): 100 Datetime: 08/09/2018 22:45 Stage of : Labor UTERINE ACTIVITY Monitor Mode: External Frequency (min): 3-5 Quality: Moderate Pattern: Normal: <= 5 Contractions in 10 Minutes Resting Tone (Palpate): Relaxed ASSESSMENT A Monitor Mode: External US FHR Baseline Rate : 130 Variability: Moderate 6-25 bpm Accelerations: 15X15 Decelerations: Variable Category: Category II LaborFlag: Labor Datetime: 08/09/2018 22:38 MEDICATIONS Pitocin (milliunits): Started @ (Annotations: 3 mu min per MD request) Datetime: 08/09/2018 22:30 Duration (sec): 60-90 FHR Baseline Changes: No Baseline Change STAGE 2 Pushing Progress: Descent with Pushing Datetime: 08/09/2018 22:00 Respirations: 18 Temperature (C): 37.2 Temperature Route: Oral Datetime: 08/09/2018 21:58 Medication Comments: pit off Datetime: 08/09/2018 21:54 Communication Comments: Dr. Cmclure here Datetime: 08/09/2018 21:43 COMMUNICATION Communication: Call/Page Placed to Provider Provider Notified (Name): Dr. Mcclure Notification Reason: Labor Status Datetime: 08/09/2018 21:39 VAGINAL EXAM Dilatation (cm): 10.0 Effacement (%): 100 Station: 2 Vaginal Bleeding: Normal Show Cervix, Consistency: Soft Datetime: 08/09/2018 21:30 Monitor Interventions for UA: [place] Adjusted Pitocin Checklist: At Least 1 Acceleration of 15 bpm x 15 Seconds in 30 Minutes or Adequate Variabi lity; No More than 1 Late Deceleration Occurred in Past 30 Minutes; No More than 2 Variable Decelerat ions > 60 Seconds in Duration and decreasing >60 bpm in 30 minutes; No More than 5 Uterine Contractio ns in 10 Minutes for any 20 Minute Interval; Uterus Palpates Soft between Contractions Datetime: 08/09/2018 21:07 Patient Position/Activity: Right Tilt Datetime: 08/09/2018 20:58 Anesthesia Level Check: T8- Ribs Datetime: 08/09/2018 20:30 Contraction Comments: pit continues at 3 mu/min Datetime: 08/09/2018 20:15 PAIN Pain Scale: 0 Pain Assessment Comments: only pressure. I/O Interventions: Hernandez Cath Inserted Patient Care Comments: 700ml output Datetime: 08/09/2018 19:45 Comments: indeterminate Datetime: 08/09/2018 19:40 Anesthesia Comments: T8 R ribs. Pt moved to L lateral position Datetime: 08/09/2018 19:26 Epidural Procedure: Loading Dose Datetime: 08/09/2018 19:07 PROCEDURE TIME OUT Procedure Verify: Correct Patient Identity Epidural Positioning: Sitting Datetime: 08/09/2018 17:55 Membrane Status: Ruptured Membranes Rupture Method: Artificial Amniotic Fluid Color: Bloody Amniotic Fluid Amount: Scant Amniotic Fluid Odor: Normal Datetime: 08/09/2018 16:39 Vital Sign Comments: patient describes feeling hot, cool washcloth given MATERNAL ASSESSMENT Level of Consciousness: Fully Conscious Headache: Denies Breath Sounds, Left: Clear and Equal Breath Sounds, Right: Clear and Equal Nausea/Vomiting: Denies RUQ Epigastric Pain: Denies Datetime: 08/09/2018 16:28 Epidural Procedure Other: Pump Started Datetime: 08/09/2018 15:09 Strip Reviewed by: Mcclure Datetime: 08/09/2018 15:02 PATIENT CARE IV/Blood Work: IV Bolus Started Datetime: 08/09/2018 15:00 Cervix, Position: Midposition Datetime: 08/09/2018 14:01 DTR's/Clonus: DTRs 2+ Datetime: 08/09/2018 12:59 Monitor Interventions for FHR: Ultrasound Adjusted Datetime: 08/09/2018 12:23 Pain Presence: Intermittent Pain Type: Cramping Pain Location: Abdomen Datetime: 08/09/2018 11:26 Pain Coping: Talking Through Contractions; Declines Medication or Epidural Datetime: 08/09/2018 09:00 Oxygen Method: Room Air Datetime: 08/09/2018 08:45 Exam by: Dr. Mcclure Datetime: 08/09/2018 08:44 Provider Reviewed Strip: Yes Datetime: 08/09/2018 05:16 Comfort Measures: Breathing/Relaxation Datetime: 08/09/2018 05:09 TEACHING Instructional Method: Verbal Plan of Care: Plan of Care Discussed; Induction Labor/Induction: Cervical Ripening Pain Management: Comfort Measures Datetime: 08/08/2018 21:02 Unit Routine: Call Patel; Unit Personnel; Monitoring; Safety/Fall Risk Prevention; Medications
== END 2018-08-11 10:19 | disposition home or self-care (01) | DRG 807 ==
LOC: FBP 17:54 → OBSVTOIN 08-09 08:54
PROVIDERS: ADMIT Obstetrics & Gynecology; ATTEND Obstetrics & Gynecology
PROC: 3E0P7VZ Introduction of Hormone into Female Reproductive, Via Natural or Artificial Opening (ICD-10-PCS; 2018-08-08)
PROC: 10E0XZZ Delivery of Products of Conception, External Approach (ICD-10-PCS; principal; 2018-08-09)
PROC: 10907ZC Drainage of Amniotic Fluid, Therapeutic from Products of Conception, Via Natural or Artificial Opening (ICD-10-PCS; 2018-08-09)
PROC: 3E033VJ Introduction of Other Hormone into Peripheral Vein, Percutaneous Approach (ICD-10-PCS; 2018-08-09)
DX: O13.4 Gestational [pregnancy-induced] hypertension without significant proteinuria, complicating childbirth (principal); Z37.0 Single live birth; Z3A.38 38 weeks gestation of pregnancy; O36.63X0 Maternal care for excessive fetal growth, third trimester, not applicable or unspecified
CPT/HCPCS: 36415; 59200; 80053; 81001; 82570; 83615; 84156; 85025; 86850; 86900; 86901; 87086

== ENCOUNTER 2019-03-08 19:29 | Emergency (ER) | payer OTHER ==
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
[2019-03-08 21:17] VITALS: BP 133/95
== END 2019-03-08 21:16 | disposition home or self-care (01) ==
LOC: ED 19:29
DX: S20.312A Abrasion of left front wall of thorax, initial encounter (principal); S30.811A Abrasion of abdominal wall, initial encounter; S60.511A Abrasion of right hand, initial encounter; S50.811A Abrasion of right forearm, initial encounter; S50.11XA Contusion of right forearm, initial encounter; S60.811A Abrasion of right wrist, initial encounter; S60.211A Contusion of right wrist, initial encounter; V43.52XA Car driver injured in collision with other type car in traffic accident, initial encounter; W22.11XA Striking against or struck by driver side automobile airbag, initial encounter; Y92.410 Unspecified street and highway as the place of occurrence of the external cause
CPT/HCPCS: 99282; 99284

== ENCOUNTER 2019-10-03 13:44 | Emergency (ER) | payer OTHER ==
[2019-10-03 13:50] VITALS: BP 158/97
--- NOTE | 2019-10-03 14:07 | ED Physician Documentation ---
PD HPI SKIN - Stated complaint Stated Complaint: RASH - Chief complaint Chief Complaint: Wound - History obtained from History obtained from: Patient - History of Present Illness Timing - onset: Other (She has an itchy rash that started on the right forearm couple of days ago and has since progressed to being on most of the trunk and legs. Spares the palms and soles. She feels fine otherwise, no fevers, chills, mouth lesions. Last menses was normal and within the month. She is never had this before. No clear exposure.) Review of Systems Constitutional: denies: Fever, Chills, Myalgias, Fatigue Nose: denies: Rhinorrhea / runny nose, Congestion Throat: denies: Sore throat Respiratory: denies: Dyspnea, Cough PD PAST MEDICAL HISTORY - Past Medical History Past Medical History: Yes Cardiovascular: None Respiratory: None Neuro: None Endocrine/Autoimmune: None GI: None MEDICAL BILLING AND CODING SPECIALIST: None : None HEENT: None Psych: None Musculoskeletal: Scoliosis Derm: None - Past Surgical History Past Surgical History: Yes Ortho: Other - Present Medications Home Medications: Ambulatory Orders Medication Instructions Recorded Confirmed Doxepin [SINEquan] 10 mg PO TID PRN #20 capsule 10/03/19 predniSONE [Deltasone] 60 mg PO DAILY 5 Days #15 tablet 10/03/19 - Allergies Allergies/Adverse Reactions: Allergies Allergy/AdvReac Type Severity Reaction Status Date / Time No Known Drug Allergies Allergy Verified 10/03/19 13:48 - Social History Does the pt smoke?: No Smoking Status: Never smoker Does the pt drink ETOH?: Yes Does the pt have substance abuse?: No - Immunizations Immunizations are current?: Yes - POLST Patient has POLST: No PD ED PE NORMAL - Vitals Vital signs reviewed: Yes - General General: Alert and oriented X 3, No acute distress - HEENT HEENT: Pharynx benign - Neck Neck: Supple, no meningeal sign, No bony TTP - Derm Derm: Other (There is a fine rash mostly on the forearms anteriorly, but on the trunk a little bit. Spares the palms.) - Neuro Neuro: Alert and oriented X 3, Normal speech Results - Vitals Vitals: Vital Signs - 24 hr 10/03/19 13:48 Temperature 36.5 C Heart Rate 74 Respiratory 17 Rate Blood Pressure 158/97 H O2 Saturation 100 Oxygen O2 Source Room air PD MEDICAL DECISION MAKING - ED course ED course: 24-year-old with nonspecific rash, could be viral or allergic. We will trial some steroids and doxepin. No evidence of serious illness/cause of rash. Departure - Departure Disposition: 01 Home, Self Care Clinical Impression: Rash and nonspecific skin eruption Condition: Good Record reviewed to determine appropriate education?: Yes Instructions: ED Dermatitis Non Specific Rash Follow-Up: [facility] [Provider Group] Prescriptions: Doxepin [SINEquan] 10 mg PO TID PRN #20 capsule PRN Reason: Itching predniSONE [Deltasone] 60 mg PO DAILY 5 Days #15 tablet Comments: Return for new or worsening symptoms, follow-up with a sheetmetal trades worker if symptoms are persistent. Your blood pressure was elevated today on check into the emergency department. This does not mean that you have hypertension, it is a common phenomenon to come to the emergency department and have elevated blood pressure. I recommend that you see your primary care physician within the week to have it rechecked when you are feeling better.
== END 2019-10-03 14:12 | disposition home or self-care (01) ==
LOC: ED 13:44
DX: R21 Rash and other nonspecific skin eruption (principal); R03.0 Elevated blood-pressure reading, without diagnosis of hypertension
CPT/HCPCS: 99282; 99283